=== PATIENT | male | born 1965 | race Caucasian/White ===

== ENCOUNTER 2017-08-04 14:35 | Emergency (ER) | payer SELFPAY ==
[~2017-08-04] VITALS: Ht 165.1 cm; Wt 73.0 kg
[2017-08-04 14:55] VITALS: BP 125/85
[2017-08-04 17:02] LABS: BASOPHILS # (AUTO) 0.05 x10^3/uL (0-0.1); BASOPHILS % (AUTO) 1 % (0-1); EOSINOPHILS # (AUTO) 0.14 x10^3/uL (0-0.4); EOSINOPHILS % (AUTO) 2 % (1-7); LYMPHOCYTES # (AUTO) 3.14 x10^3/uL (1-3.4); LYMPHOCYTES % (AUTO) 38 % (22-44); MD NO; MEAN CORPUSCULAR HEMOGLOBIN 31.8 pg (27.5-34.5); MEAN CORPUSCULAR HGB CONC 34.1 g/dL (33.2-36.2); MEAN CORPUSCULAR VOLUME 93.3 fL (81-97); MEAN PLATELET VOLUME 9.2 fL (7.4-10.4); MONOCYTES # (AUTO) 0.64 x10^3/uL (0.2-0.8); MONOCYTES % (AUTO) 8 % (2-9); NEUTROPHILS # (AUTO) 4.22 x10^3/uL (1.8-6.8); NEUTROPHILS % (AUTO) 52 % (42-75); PLATELET COUNT 200 x10^3/uL (130-400); RED BLOOD COUNT 4.48 x10^6/uL (4.38-5.82); RED CELL DISTRIBUTION WIDTH 12.7 % (9.4-14.8)
[2017-08-04 17:20] LABS: ALBUMIN 3.1 g/dL (3.4-5.0); ANION GAP 8 mmol/L (5-15); CALCIUM 8.8 mg/dL (8.5-10.1); CHLORIDE 105 mmol/L (98-107); CREATININE 0.68 mg/dL (0.7-1.3)
[2017-08-04] MEDS ORDERED: IBUPROFEN 200 MG TABLET ONE (17:20)
[2017-08-04] MEDS ORDERED: IBUPROFEN 200 MG TABLET PO ONE (17:30)
== END 2017-08-04 19:10 | disposition home or self-care (01) ==
LOC: ED 18:22
DX: G44.209 Tension-type headache, unspecified, not intractable (principal); I10 Essential (primary) hypertension; E11.9 Type 2 diabetes mellitus without complications
CPT/HCPCS: 36415; 70450; 80048; 82040; 85025; 99285

== ENCOUNTER 2020-03-22 15:38 | Emergency (ER) | payer SELFPAY ==
[~2020-03-22] VITALS: Ht 167.6 cm; Wt 71.0 kg
[2020-03-22] MEDS ORDERED: ACETAMINOPHEN 500 MG TABLET ONE (16:06)
[2020-03-22] MEDS ORDERED: ACETAMINOPHEN 500 MG TABLET PO ONE (16:30)
[2020-03-22 17:29] LABS: ALBUMIN 3.2 g/dL (3.4-5.0); ANION GAP 5 mmol/L (5-15); CALCIUM 8.3 mg/dL (8.5-10.1); CHLORIDE 100 mmol/L (98-107)
[2020-03-22 17:30] LABS: BASOPHILS % (AUTO) 0 % (0-1); EOSINOPHILS % (AUTO) 0 % (1-7); LYMPHOCYTES % (AUTO) 12 % (22-44); MEAN CORPUSCULAR HEMOGLOBIN 30.2 pg (27.5-34.5); MEAN CORPUSCULAR HGB CONC 33.9 g/dL (33.2-36.2); MEAN PLATELET VOLUME 9.6 fL (7.4-10.4); MONOCYTES % (AUTO) 10 % (2-9); NEUTROPHILS % (AUTO) 78 % (42-75); PLATELET COUNT 181 x10^3/uL (130-400); RED BLOOD COUNT 4.51 x10^6/uL (4.38-5.82)
[2020-03-22 17:32] LABS: ALANINE AMINOTRANSFERASE 26 U/L (12-78); ALKALINE PHOSPHATASE 88 U/L (45-117); BILIRUBIN,TOTAL 0.5 mg/dL (0.2-1.0); CREATININE 1.21 mg/dL (0.7-1.3); TOTAL PROTEIN 7.7 g/dL (6.4-8.2)
[2020-03-22 17:35] LABS: MD NO
--- NOTE | 2020-03-22 18:01 | NUR ---
DR PFEIFFER AT BS FOR EXAM
--- NOTE | 2020-03-22 18:02 | NUR ---
PT REPORTS FEVER & COUGH "A LITTLE, LITTLE BIT". SX STARTED FRIDAY. NO MEDS TAKEN FOR SX. REPORTS CHANGE IN SENSE OF TASTE. DENIES N/V, DIARRHEA, CONSTIPATION. DENIES COVID EXPOSURE. SPOUSE IN [facility].
[2020-03-22] MEDS ORDERED: INSU100V13 SQ (18:05)
[2020-03-22] MEDS ORDERED: METF500T17 PO (18:05)
--- NOTE | 2020-03-22 18:05 | NUR ---
CXR AT BS
[2020-03-22 18:09] VITALS: BP 125/79
== END 2020-03-22 19:21 | disposition home or self-care (01) ==
LOC: ED 19:07
DX: U07.1 COVID-19 (principal); J06.9 Acute upper respiratory infection, unspecified; B34.9 Viral infection, unspecified; E11.9 Type 2 diabetes mellitus without complications; R50.9 Fever, unspecified; R05 Cough
CPT/HCPCS: 36415; 71045; 80053; 85025; 87635; 99284

== ENCOUNTER 2020-05-20 16:30 | Emergency (ER) | payer SELFPAY ==
[~2020-05-20] VITALS: Ht 165.1 cm; Wt 73.8 kg
[~2020-05-20 16:30] MED LIST: INSU100V13 SQ; METF500T17 PO
[2020-05-20 16:31] VITALS: BP 162/86
[2020-05-20] MEDS ORDERED: LIDOCAINE-MPF 1%, 5ML ONE (17:18)
--- NOTE | 2020-05-20 17:21 | NUR ---
RAD IN ROOM.
[2020-05-20] MEDS ORDERED: LIDOCAINE-MPF 1%, 5ML INFIL ONE (17:30)
== END 2020-05-20 19:49 | disposition home or self-care (01) ==
LOC: ED 17:04
DX: G89.29 Other chronic pain (principal); M25.521 Pain in right elbow; M71.121 Other infective bursitis, right elbow; I10 Essential (primary) hypertension; E11.9 Type 2 diabetes mellitus without complications
CPT/HCPCS: 10060; 87070; 87077; 87147; 87186; 87205; 89051; 99284